=== PATIENT | female | born 1975 | race Caucasian/White ===

== ENCOUNTER 2020-09-08 05:59 | Emergency (ER) | payer MEDICARE ==
[~2020-09-08] VITALS: Ht 165.1 cm; Wt 54.5 kg
[2020-09-08 05:59] VITALS: BP 134/86
[~2020-09-08 05:59] MED LIST: BISA5TAB4 PO; CALC500T31 PO; CHLO25CA9 PO; CLON0.1T PO; HYDR20VI5 IV; LORA0.5T IV; MAGN24003 PO; METO10TA81 IV; MVI,5VIA2 IV
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
[2020-09-08 07:24] LABS: BASO # 0.1 x10^3/uL (0.0-0.2); BASO % 1 % (0-3); EOS # 0.3 x10^3/uL (0.0-0.7); EOS % 5 % (0-3); HEMATOCRIT 40.2 % (36.0-47.0); HEMOGLOBIN 13.6 g/dL (12.0-15.5); LYMPH % 28 % (24-48); MEAN CORPUSCULAR HEMOGLOBIN 31 pg (25-35); MEAN CORPUSCULAR HGB CONC 34 g/dL (31-37); MEAN CORPUSCULAR VOLUME 91 fL (79-100); MONO # 0.7 x10^3/uL (0.0-1.1); MONO % 9 % (0-9); NEUT % 57 % (31-73); PLATELET COUNT 304 x10^3/uL (140-400); RED BLOOD COUNT 4.43 x10^6/uL (3.50-5.40); RED CELL DISTRIBUTION WIDTH 16.8 % (11.5-14.5); WHITE BLOOD COUNT 7.1 x10^3/uL (4.0-11.0)
[2020-09-08 07:30] LABS: CALCIUM 9.6 mg/dL (8.5-10.1); CREATININE 0.9 mg/dL (0.6-1.0); GFR 67.4; POTASSIUM 3.8 mmol/L (3.5-5.1)
[2020-09-08 07:41] LABS: BILIRUBIN,URINE NEGATIVE (NEG); CLARITY,URINE CLEAR; COLOR,URINE YELLOW; NITRITE,URINE NEGATIVE (NEG); PROTEIN,URINE NEGATIVE (NEG-TRACE)
[2020-09-08 07:51] LABS: AMPHETAMINE/METHAMPHETAMINE POS (NEG); BARBITURATES NEG (NEG); BENZODIAZEPINES NEG (NEG); CANNABINOIDS NEG (NEG); COCAINE NEG (NEG); METHADONE NEG (NEG); OPIATES NEG (NEG); PHENCYCLIDINE NEG (NEG)
[2020-09-08 07:54] LABS: BACTERIA,URINE FEW /HPF (0-FEW); RBC,URINE >40 /HPF (0-2); WBC,URINE 0 /HPF (0-4)
[2020-09-08 08:16] LABS: LI 0.6 mmol/L (0.6-1.2)
== END 2020-09-08 09:37 | disposition home or self-care (01) ==
LOC: ER 05:59
DX: F15.10 Other stimulant abuse, uncomplicated (principal); F31.9 Bipolar disorder, unspecified; F41.9 Anxiety disorder, unspecified; F25.9 Schizoaffective disorder, unspecified; F17.200 Nicotine dependence, unspecified, uncomplicated; E11.9 Type 2 diabetes mellitus without complications; I50.9 Heart failure, unspecified; Z79.899 Other long term (current) drug therapy
CPT/HCPCS: 36415; 80048; 80178; 80307; 81001; 82550; 82962; 85025; 99283; G0480

== ENCOUNTER 2021-08-01 17:56 | Emergency (ER) | payer MEDICARE | END 2021-08-01 19:51 | disposition left against medical advice (07) | LOC: ER 17:56 | DX: R46.89 Other symptoms and signs involving appearance and behavior (principal); Z53.21 Procedure and treatment not carried out due to patient leaving prior to being seen by health care provider ==

== ENCOUNTER 2021-08-01 20:26 | Emergency (ER) | payer MEDICARE ==
[~2021-08-01] VITALS: Ht 154.9 cm; Wt 54.5 kg
[2021-08-01 22:05] VITALS: BP 135/73
--- NOTE | 2021-08-01 22:41 | PHYS DOC ---
Past Medical History Past Medical History: Anxiety, Bipolar, Other Additional Past Medical Histor: SCHIZOAFFECTIVE, (EARL ASHBY NEWS TECHNICAL DIRECTOR) Past Surgical History: Other Additional Past Surgical Histo: PIN R LEG, ARM FRACTURE, JAW FRACTURE, STOMACH, TUBAL (EARL ASHBY NEWS TECHNICAL DIRECTOR) Smoking Status: Current Every Day Smoker Alcohol Use: None (EARL ASHBY APRN) General Adult EDM: Chief Complaint: PSYCH EVALUATION HPI: HPI: Patient is a 46-year-old female that presents today via [facility] for evaluation of vaginal bleeding over 6 weeks ago, painful urination and the need for homeless [place] [facility]. Patient states that she was at [facility] today and was evaluated by the provider in the emergency department there was given a medication injection and a prescription and sent home, she is requesting further evaluation from this facility thinking that she did not get what she needs at [facility]. Per EMS report patient was picked up in [place] and refused to go to [facility] again she was brought here to [facility] for further evaluation patient did leave and she did return at a later date with a bag of chips. Patient is uncooperative during the HPI portion of the exam. Patient is very manic at this time patient states she was incarcerated from beginning of June till 27 July, patient states during that time she had multiple heavy menstrual cycles while in snf, she states that she wants an evaluation of her uterus for possible cancer at this time as well. Patient is also requesting something to eat, patient also denies homicidal or suicidal ideations. Patient does state that she is homeless. (EARL ASHBY NEWS TECHNICAL DIRECTOR) Review of Systems: Review of Systems: Constitutional: Denies fever or chills. [] Eyes: Denies change in visual acuity. [] HENT: Denies nasal congestion or sore throat. [] Respiratory: Denies cough or shortness of breath. [] Cardiovascular: Denies chest pain or edema. [] GI: Denies abdominal pain, nausea, vomiting, bloody stools or diarrhea. [] : dysuria. [] Musculoskeletal: Denies back pain or joint pain. [] Integument: Denies rash. [] Neurologic: Denies headache, focal weakness or sensory changes. [] Endocrine: Denies polyuria or polydipsia. [] Lymphatic: Denies swollen glands. [] Psychiatric: manic [] (EARL ASHBY APRN) Heart Score: C/O Chest Pain: N/A Risk Factors: Risk Factors: DM, Current or recent (<one month) smoker, HTN, HLP, family history of CAD, obesity. Risk Scores: Score 0 - 3: 2.5% MACE over next 6 weeks - Discharge Home Score 4 - 6: 20.3% MACE over next 6 weeks - Admit for Clinical Observation Score 7 - 10: 72.7% MACE over next 6 weeks - Early Invasive Strategies (EARL ASHBY APRN) Allergies: Allergies: Allergies Coded Allergies Type Severity Reaction Last Updated Verified No Known Drug Allergies 01/22/18 No (EARL ASHBY APRN) Physical Exam: PE: Constitutional: Well developed, well nourished, non-toxic appearance, manic [] HENT: Normocephalic, atraumatic, bilateral external ears normal, oropharynx moist, no oral exudates, nose normal. [] Eyes: PERRLA, EOMI, conjunctiva normal, no discharge. [] Neck: Normal range of motion, no tenderness, supple, no stridor. [] Cardiovascular:Heart rate regular rhythm, no murmur [] Lungs & Thorax: Bilateral breath sounds clear to auscultation [] Abdomen: Bowel sounds normal, soft, no tenderness, no masses, no pulsatile masses. [] Skin: Warm, dry, no erythema, no rash. [] Back: No tenderness, no CVA tenderness. [] Extremities: No tenderness, no cyanosis, no clubbing, ROM intact, no edema. [] Neurologic: Alert and oriented X 3, normal motor function, normal sensory function, no focal deficits noted. [] Psychologic: manic, adequate judgement. [] (EARL ASHBY APRN) Current Patient Data: Vital Signs: Vital Signs Date Time Temp Pulse Resp B/P (MAP) Pulse Ox O2 Delivery O2 Flow Rate FiO2 08/01/21 22:05 118 18 135/73 (93) 98 Room Air 08/01/21 21:06 98.3 98.3 (EARL ASHBY APRN) EKG: EKG: [] (EARL ASHBY APRN) Radiology/Procedures: Radiology/Procedures: [] (EARL ASHBY APRN) Impression: I overheard conversation with TIMBER MANAGEMENT ASSISTANT and pt. Pt with mild kenisha but is redirectable and organized. Has no pyschotic behavior and is able to care for herself (clothe, feed, find [place] [facility], etc). Pt denies any SI or HI. TIMBER MANAGEMENT ASSISTANT called and spoke to PAT team-pt was recently at the [facility] today and has access to her medications but is noncomplaint. Drug screen earlier today wnl. Pt is not a danger to herself or others. Pt refused our recommendations for labs (to check hemoglobin) and eloped from the ed. (ANGELINE BURGESS DO) Course & Med Decision Making: Course & Med Decision Making Pertinent Labs and Imaging studies reviewed. (See chart for details) 2220 patient informed of decision to draw basic labs due to patient's complaint of heavy menstrual cycle last month, patient was eating a bag of chips a meal provided by the staff and some soup, patient was also given a list of homeless shelters to contact for [place] [facility] this evening, she stated that she has called all of them and none of them will take her. 2225 patient was seen running down the [place], patient is refusing blood draws she does not want people to have her DNA. Patient eloped from the emergency department. (EARL ASHBY APRN) Dragon Disclaimer: Dragon Disclaimer: This electronic medical record was generated, in whole or in part, using a voice recognition dictation system. (EARL ASHBY APRN) Departure Departure Disposition: 07 LEFT AWOL/ELOPED Condition: STABLE Referrals: NO PCP (PCP) EARL ASHBY APRN Aug 01, 2021 22:41 ANGELINE BURGESS DO Aug 02, 2021 02:20
== END 2021-08-01 22:47 | disposition left against medical advice (07) ==
LOC: ER 20:26
DX: N93.9 Abnormal uterine and vaginal bleeding, unspecified (principal); R30.0 Dysuria; F41.9 Anxiety disorder, unspecified; F31.9 Bipolar disorder, unspecified; F20.9 Schizophrenia, unspecified; F17.200 Nicotine dependence, unspecified, uncomplicated
CPT/HCPCS: 99283

== ENCOUNTER 2021-08-03 13:26 | Emergency (ER) | payer MEDICARE ==
[~2021-08-03] VITALS: Ht 165.1 cm; Wt 53.7 kg
[2021-08-03 13:32] VITALS: BP 108/60
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
[2021-08-03 14:31] LABS: BASO % 0 % (0-3); EOS % 0 % (0-3); HEMATOCRIT 38.3 % (36.0-47.0); HEMOGLOBIN 12.9 g/dL (12.0-15.5); LYMPH # 0.7 x10^3/uL (1.0-4.8); LYMPH % 10 % (24-48); MEAN CORPUSCULAR HEMOGLOBIN 31 pg (25-35); MEAN CORPUSCULAR HGB CONC 34 g/dL (31-37); MEAN CORPUSCULAR VOLUME 91 fL (79-100); MONO # 0.4 x10^3/uL (0.0-1.1); MONO % 5 % (0-9); NEUT # 6.1 x10^3/uL (1.8-7.7); NEUT % 84 % (31-73); PLATELET COUNT 348 x10^3/uL (140-400); RED CELL DISTRIBUTION WIDTH 14.7 % (11.5-14.5); WHITE BLOOD COUNT 7.2 x10^3/uL (4.0-11.0)
[2021-08-03 14:36] LABS: BILIRUBIN,URINE SMALL (NEG); CLARITY,URINE CLOUDY; COLOR,URINE YELLOW; NITRITE,URINE NEGATIVE (NEG); PH,URINE 5.5 (<5.0-8.0); PROTEIN,URINE NEGATIVE (NEG-TRACE); UROBILINOGEN,URINE 0.2 mg/dL (0.2 mg/dL)
[2021-08-03 14:40] LABS: CALCIUM 8.4 mg/dL (8.5-10.1); CREATININE 0.8 mg/dL (0.6-1.0); GFR 76.9; POTASSIUM 4.4 mmol/L (3.5-5.1)
[2021-08-03 14:47] LABS: ALBUMIN 3.4 g/dL (3.4-5.0); ALBUMIN/GLOBULIN RATIO 0.9 (1.0-1.7); TOTAL BILIRUBIN 0.7 mg/dL (0.2-1.0); TOTAL PROTEIN 7.2 g/dL (6.4-8.2)
[2021-08-03 14:49] LABS: BARBITURATES NEG (NEG); BENZODIAZEPINES NEG (NEG); CANNABINOIDS NEG (NEG); COCAINE NEG (NEG); METHADONE NEG (NEG); OPIATES NEG (NEG); PHENCYCLIDINE NEG (NEG)
[2021-08-03 14:59] LABS: AMPHETAMINE/METHAMPHETAMINE NEG (NEG)
[2021-08-03 14:59] LABS: ACETAMIN < 2 mcg/ml (10-30); ETHANOL < 10 mg/dL (0-10); SALIC 1.8 mg/dL (2.8-20.0)
[2021-08-03 15:11] LABS: HYALINE CASTS, URINE MANY /HPF
[2021-08-03 15:12] LABS: BACTERIA,URINE MODERATE /HPF (0-FEW); TRICHOMONAS,URINE PRESENT; WBC,URINE TNTC /HPF (0-4)
[2021-08-03] MEDS ORDERED: NITROFURANTOIN MONOHYD/M-CRYST 100 MG CAPSULE. PO ONE (16:15)
[2021-08-03] MEDS ORDERED: NITR100C62 PO (16:52)
== END 2021-08-03 17:19 | disposition home or self-care (01) ==
LOC: ER 13:26
DX: N39.0 Urinary tract infection, site not specified (principal); Z20.822 Contact with and (suspected) exposure to COVID-19; F31.9 Bipolar disorder, unspecified; E05.90 Thyrotoxicosis, unspecified without thyrotoxic crisis or storm; F25.9 Schizoaffective disorder, unspecified; F17.200 Nicotine dependence, unspecified, uncomplicated; Z59.00 Homelessness unspecified
CPT/HCPCS: 36415; 80053; 80307; 80329; 81001; 81025; 82962; 85025; 87086; 87426; 99284; G0480; U0003; U0005; 87077; 87186